=== PATIENT | female | born 1965 ===

== ENCOUNTER 2020-10-16 06:47 | Inpatient (IN) | payer MEDICAID ==
[2020-10-16] MEDS ORDERED: MELATONIN 5 MG TAB PO PRN (08:18)
[2020-10-16] MEDS: OMEGA-3 FATTY ACIDS/FISH OIL 1 GRAM CAP PO SCH (10:00)
[2020-10-16] MEDS: NICOTINE 21 MG/24 HR PATCH TD SCH (14:47)
[2020-10-16] MEDS ORDERED: oxyCODONE /ACETAMINOPHEN 5-325MG TAB PO STA (21:04)
[2020-10-16] MEDS: DIVALPROEX ER 500 MG TAB PO SCH (22:29)
[2020-10-16] MEDS: traZODone 50 MG TAB PO SCH (22:30)
[2020-10-17] MEDS: OMEGA-3 FATTY ACIDS/FISH OIL 1 GRAM CAP PO SCH ×3 (02:48→21:32)
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
[2020-10-17] MEDS: ESCITALOPRAM 10 MG TAB PO SCH (09:06)
[2020-10-17] MEDS: NICOTINE 21 MG/24 HR PATCH TD SCH (09:07)
[2020-10-17] MEDS: DIVALPROEX ER 500 MG TAB PO SCH ×4 (09:07→20:06)
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
[2020-10-17] MEDS ORDERED: ONDANSETRON 8 MG ODT TAB PO PRN (18:26)
[2020-10-17] MEDS: PANTOPRAZOLE 40 MG TAB PO SCH (20:05)
[2020-10-17] MEDS: oxyCODONE 5 MG TAB PO PRN (20:08)
[2020-10-17] MEDS: oxyCODONE /ACETAMINOPHEN 5-325MG TAB PO PRN (20:10)
[2020-10-17 20:14] LABS: Basophils # (Auto) 0.1 K/mm3 (0.0-0.1); Basophils % (Auto) 1.1 % (0.0-1.8); Eosinophils # (Auto) 0.2 K/mm3 (0.0-0.4); Eosinophils % (Auto) 2.4 % (0.0-4.3); Hematocrit 41.4 % (30.3-42.9); Hemoglobin 13.9 gm/dl (10.1-14.3); Lymphocytes # (Auto) 3.5 K/mm3 (1.2-5.4); Lymphocytes % (Auto) 37.7 % (13.4-35.0); Mean Corpuscular HGB Conc 34 % (30-34); Mean Corpuscular Volume 98 fl (79-97); Monocytes # (Auto) 0.6 K/mm3 (0.0-0.8); Monocytes % (Auto) 6.8 % (0.0-7.3); Platelet Count 279 K/mm3 (140-440); Red Blood Count 4.24 M/mm3 (3.65-5.03); Red Cell Distribution Width 15.3 % (13.2-15.2)
[2020-10-17 20:32] LABS: Alanine Aminotransferase 14 units/L (7-56); Albumin 4.2 g/dL (3.9-5); BUN/Creatinine Ratio 18; Blood Urea Nitrogen 21 mg/dL (7-17); Calcium 9.7 mg/dL (8.4-10.2); Chol/HDL Ratio 4.77 %; HDL Cholesterol 45 mg/dL (40-59); Hemolysis Index 3; LDL Cholesterol,Direct 135 mg/dL (50-130)
[2020-10-17] MEDS: METOCLOPRAMIDE 10 MG TAB PO SCH (21:32)
[2020-10-17] MEDS: traZODone 50 MG TAB PO SCH (21:32)
[2020-10-17] MEDS: CETIRIZINE 10 MG TAB PO SCH (21:35)
[2020-10-17] MEDS: MONTELUKAST 10 MG TAB PO SCH (21:35)
[2020-10-17] MEDS ORDERED: NON-FORMULARY EACH (Oxycodone Hcl/Acetaminophen [Oxycodone-Acetaminophen 10-325] 1 EACH Ta PO SCH (22:00)
[2020-10-17] MEDS ORDERED: NON-FORMULARY EACH (Fluticasone/Salmeterol [Advair Diskus 250-50 Mcg] 1 EACH Blst.W.Dev) IH SCH (22:00)
[2020-10-18] MEDS: ARFORMOTEROL 15 MCG/2 ML NEBU IH SCH ×2 (05:01→07:57)
[2020-10-18] MEDS: BUDESONIDE 0.5 MG/2 ML NEBU IH SCH ×2 (05:01→07:57)
--- NOTE | 2020-10-18 08:22 | Progress Note ---
Subjective Date of service: 10/18/20 Principal diagnosis: MDD Subjective Comment: Per nurse note: Last evening the patient presented as anxious. She paced the hallway until her medications were ordered the way she wanted. After receiving her meds she became much calmer and interacted well with her peers. She denies si/hi/ah/vh. She has a good appetite and is medication compliant. Overnight the patient rested quietly. She slept 8 hours. Will continue to monitor patient for safety. The patient was seen today, she is sitting in the dayroom. She is a/o x 3. She's pleasant. The patient is slightly tearful. She says she didn't sleep well. Mrs. Dickerson says she was admitted because she has a spot on her lungs, and has no social support. She says "I was very depressed, but I feel a little better about the situation." She also verbalizes feeling a "little suicide," at the time, but states "I do feel somewhat better now." She denies hallucinations of any kind. REVIEW OF SYSTEMS Constitutional: Negative for weight loss ENT: Negative for stridor Respiratory: Negative for cough or hemoptysis All other systems reviewed and are negative MENTAL STATUS EXAMINATION General Appearance and Behavior: Age appropriate, good hygiene, wearing appropriate clothes,, good eye contact Cooperation: Participating/engaged, but Guarded Psychomotor Behavior: Psychomotor normal Mood: depressed Affect and affective range: tearful Thought Process: goal directed Thought Content: hopelessness, helplessness Speech: Normal rate, volume and rhythm Intellectual Functioning: Average Suicidal Ideation: Passive SI Homicidal Ideation: Denies HI Hallucinations: Denies Delusions: None elicited Impulse Control: Impaired Insight and Judgment: Limited insight and judgment Memory: Normal Attention: Normal Orientation: Alert, oriented Assessment and Plan (1) MDD (major depressive disorder), recurrent episode Current Visit: Yes Status: Acute Treatment Plan Patient admitted for inpatient psychiatric evaluation, medication adjustment and close monitoring The patient's behavior, mood, sleep and appetite will be closely monitored. Patient enrolled in individual and group therapeutic sessions and encouraged to attend. Patient provided with a safe and structured environment. Patient's physical health needs will be addressed by the Hospitalist. Hospitalist Consulted Labs including CBC, CMP, Lipid profile and Hemoglobin A1C levels ordered for baseline reference Social Assessment will be completed and the Surveying Teacher will work with patient and family to ensure a suitable and safe disposition Medication adjustment will be made as clinically indicated Increase Trazodone 75mg po qhs Usual Wellness Jainism/Preservation: - Start Trazodone 50 mg po QHS & 50 mg po QHS PRN between 10 PM & 2 AM for insomnia - Start Melatonin 5 mg po QHS to promote circadian rhythm - Start [place]-3 for brain health, reduce impulsivity, and as adjunctive treatment for mood disorder, continue upon discharge given overall benefits. - Start B1 prophylaxis with 200 mg po for 5 days The patient agreed on the treatment plan, understood the risk, benefit, alternative treatment, potential consequence of no treatment, and gave informed consent. Estimated days: 2 Post hospital care: primary care provider, psychiatric provider Medications and Allergies Allergies Allergy/AdvReac Type Severity Reaction Status Date / Time cyclobenzaprine Allergy Unknown Verified 10/16/20 10:50 [From Flexeril] tizanidine [From Zanaflex] Allergy Unknown Verified 10/16/20 10:50 Home Medications Medication Instructions Recorded Confirmed Last Taken Type AtorvaSTATin [Lipitor] 10 mg PO QHS 10/16/20 10/16/20 Unknown History Divalproex ER [DepaKOTE ER] 500 mg PO TID 10/16/20 10/16/20 Unknown History Escitalopram [Lexapro] 30 mg PO DAILY 10/16/20 10/16/20 Unknown History Fluticasone/Salmeterol [Advair 1 puff IH BID 10/16/20 10/16/20 Unknown History Diskus 250-50 mcg] Loratadine [Allergy Relief] 10 mg PO QDAY 10/16/20 10/16/20 Unknown History Meloxicam [Mobic] 15 mg PO DAILY 10/16/20 10/16/20 Unknown History Metoclopramide [Reglan] 10 mg PO ACHS 10/16/20 10/16/20 Unknown History Montelukast [Singulair] 10 mg PO QPM 10/16/20 10/16/20 Unknown History Ondansetron [Zofran ODT TAB] 8 mg PO PRN PRN 10/16/20 10/16/20 Unknown History Oxycodone HCl/Acetaminophen 10 - 325 mg PO QID 10/16/20 10/16/20 Unknown History [Oxycodone-Acetaminophen 10-325] Pantoprazole [Protonix] 40 mg PO QDAY 10/16/20 10/16/20 Unknown History cephALEXin [Keflex] 500 mg PO Q12HR 10/16/20 10/16/20 10/16/20 09:00 History clonazePAM [KlonoPIN] 1 mg PO BID 10/16/20 10/16/20 Unknown History diphenhydrAMINE [Benadryl CAP] 50 mg PO DAILY 10/16/20 10/16/20 Unknown History Active Meds: Active Medications Arformoterol Tartrate (Arformoterol 15 Mcg/2 Ml Nebu) 15 mcg IH Q12HRT [facility] Last Admin: 10/18/20 07:57 Dose: 15 mcg Documented by: Atorvastatin Calcium (Atorvastatin 10 Mg Tab) 10 mg PO QHS [facility] Last Admin: 10/17/20 21:32 Dose: 10 mg Documented by: Budesonide (Budesonide 0.5 Mg/2 Ml Nebu) 0.5 mg IH Q12HRT [facility] Last Admin: 10/18/20 07:57 Dose: 0.5 mg Documented by: Cephalexin (Cephalexin 500 Mg Cap) 500 mg PO Q12HR [facility]; Protocol Stop: 10/22/20 23:59 Cetirizine HCl (Cetirizine 10 Mg Tab) 10 mg PO DAILY [facility] Last Admin: 10/17/20 21:35 Dose: 10 mg Documented by: Clonazepam (Clonazepam 2 Mg Tab) 1 mg PO BID [facility] Last Admin: 10/17/20 21:33 Dose: 1 mg Documented by: Divalproex Sodium (Divalproex Er 500 Mg Tab) 500 mg PO TID [facility] Last Admin: 10/17/20 20:06 Dose: 500 mg Documented by: Escitalopram Oxalate (Escitalopram 10 Mg Tab) 30 mg PO DAILY [facility] Last Admin: 10/17/20 09:06 Dose: 30 mg Documented by: Fish Oil ([place]-3 Fatty Acids/Fish Oil 1 Gram Cap) 2,000 mg PO BID [facility] Last Admin: 10/17/20 21:32 Dose: 2,000 mg Documented by: Melatonin (Melatonin 5 Mg Tab) 5 mg PO QHS PRN PRN Reason: Sleep Metoclopramide HCl (Metoclopramide 10 Mg Tab) 10 mg PO ACHS [facility] Last Admin: 10/17/20 21:32 Dose: 10 mg Documented by: Montelukast Sodium (Montelukast 10 Mg Tab) 10 mg PO QPM [facility] Last Admin: 10/17/20 21:35 Dose: 10 mg Documented by: Nicotine (Nicotine 21 Mg/24 Hr Patch) 21 mg TD QDAY [facility] Last Admin: 10/17/20 09:07 Dose: 21 mg Documented by: Ondansetron HCl (Ondansetron 8 Mg Odt Tab) 8 mg PO Q6H PRN PRN Reason: Nausea Oxycodone HCl (Oxycodone 5 Mg Tab) 5 mg PO QID PRN PRN Reason: Pain, Moderate (4-6) Last Admin: 10/17/20 20:08 Dose: 5 mg Documented by: Oxycodone/Acetaminophen (Oxycodone /Acetaminophen 5-325mg Tab) 1 tab PO QID PRN PRN Reason: Pain, Moderate (4-6) Last Admin: 10/17/20 20:10 Dose: 1 tab Documented by: Pantoprazole Sodium (Pantoprazole 40 Mg Tab) 40 mg PO QDAY [facility] Last Admin: 10/17/20 20:05 Dose: 40 mg Documented by: Trazodone HCl (Trazodone 50 Mg Tab) 50 mg PO QHS [facility] Last Admin: 10/17/20 21:32 Dose: 50 mg Documented by: Results - Results Labs/Vitals: Laboratory Last Values WBC 9.3 K/mm3 (4.5-11.0) 10/17/20 19:36 RBC 4.24 M/mm3 (3.65-5.03) 10/17/20 19:36 Hgb 13.9 gm/dl (10.1-14.3) 10/17/20 19:36 Hct 41.4 % (30.3-42.9) 10/17/20 19:36 MCV 98 fl (79-97) H 10/17/20 19:36 MCH 33 pg (28-32) H 10/17/20 19:36 MCHC 34 % (30-34) 10/17/20 19:36 RDW 15.3 % (13.2-15.2) H 10/17/20 19:36 Plt Count 279 K/mm3 (140-440) 10/17/20 19:36 Lymph % (Auto) 37.7 % (13.4-35.0) H 10/17/20 19:36 [place] % (Auto) 6.8 % (0.0-7.3) 10/17/20 19:36 Eos % (Auto) 2.4 % (0.0-4.3) 10/17/20 19:36 Baso % (Auto) 1.1 % (0.0-1.8) 10/17/20 19:36 Lymph # (Auto) 3.5 K/mm3 (1.2-5.4) 10/17/20 19:36 [place] # (Auto) 0.6 K/mm3 (0.0-0.8) 10/17/20 19:36 Eos # (Auto) 0.2 K/mm3 (0.0-0.4) 10/17/20 19:36 Baso # (Auto) 0.1 K/mm3 (0.0-0.1) 10/17/20 19:36 Seg Neutrophils % 52.0 % (40.0-70.0) 10/17/20 19:36 Seg Neutrophils # 4.9 K/mm3 (1.8-7.7) 10/17/20 19:36 Sodium 139 mmol/L (137-145) 10/17/20 19:36 Potassium 4.3 mmol/L (3.6-5.0) 10/17/20 19:36 Chloride 101.1 mmol/L (98-107) 10/17/20 19:36 Carbon Dioxide 27 mmol/L (22-30) 10/17/20 19:36 Anion Gap 15 mmol/L 10/17/20 19:36 BUN 21 mg/dL (7-17) H 10/17/20 19:36 Creatinine 1.2 mg/dL (0.6-1.2) 10/17/20 19:36 Estimated GFR 46 ml/min 10/17/20 19:36 BUN/Creatinine Ratio 18 % 10/17/20 19:36 Glucose 93 mg/dL (65-100) 10/17/20 19:36 Hemoglobin A1c 5.2 % (4-6) 10/17/20 19:36 Calcium 9.7 mg/dL (8.4-10.2) 10/17/20 19:36 Magnesium 2.10 mg/dL (1.7-2.3) 10/17/20 19:36 Total Bilirubin < 0.20 mg/dL (0.1-1.2) 10/17/20 19:36 AST 18 units/L (5-40) 10/17/20 19:36 ALT 14 units/L (7-56) 10/17/20 19:36 Alkaline Phosphatase 97 units/L (35-129) 10/17/20 19:36 Total Protein 7.2 g/dL (6.3-8.2) 10/17/20 19:36 Albumin 4.2 g/dL (3.9-5) 10/17/20 19:36 Albumin/Globulin Ratio 1.4 % 10/17/20 19:36 Triglycerides 256 mg/dL (2-149) H 10/17/20 19:36 Cholesterol 215 mg/dL (50-199) H 10/17/20 19:36 LDL Cholesterol Direct 135 mg/dL (50-130) H 10/17/20 19:36 HDL Cholesterol 45 mg/dL (40-59) 10/17/20 19:36 Cholesterol/HDL Ratio 4.77 % 10/17/20 19:36 Vitamin B12 513.1 pg/mL (211-911) 10/17/20 19:36 TSH 2.930 mlU/mL (0.270-4.200) 10/17/20 19:36 Last Vital Signs Temp 98.3 F 10/17/20 22:00 Pulse 82 10/18/20 07:59 Resp 19 10/18/20 07:59 BP 114/80 10/17/20 22:00 Pulse Ox 96 10/17/20 22:00
[2020-10-18] MEDS: NICOTINE 21 MG/24 HR PATCH TD SCH (09:07)
[2020-10-18] MEDS: OMEGA-3 FATTY ACIDS/FISH OIL 1 GRAM CAP PO SCH ×2 (09:07→21:20)
[2020-10-18] MEDS: DIVALPROEX ER 500 MG TAB PO SCH ×3 (09:07→20:59)
[2020-10-18] MEDS: ESCITALOPRAM 10 MG TAB PO SCH (09:08)
[2020-10-18] MEDS: cephALEXin 500 MG CAP PO SCH ×2 (09:08→21:21)
[2020-10-18] MEDS: METOCLOPRAMIDE 10 MG TAB PO SCH ×4 (09:08→21:21)
[2020-10-18] MEDS: CETIRIZINE 10 MG TAB PO SCH (09:08)
[2020-10-18] MEDS: PANTOPRAZOLE 40 MG TAB PO SCH (09:08)
[2020-10-18] MEDS ORDERED: NON-FORMULARY EACH (Loratadine [Allergy Relief] 10 MG Tablet) PO SCH (10:00)
[2020-10-18] MEDS: oxyCODONE /ACETAMINOPHEN 5-325MG TAB PO PRN (10:13)
[2020-10-18] MEDS: oxyCODONE 5 MG TAB PO PRN (10:14)
[2020-10-18] MEDS: ASPIRIN EC 81 MG TAB PO SCH (13:51)
[2020-10-18] MEDS: MONTELUKAST 10 MG TAB PO SCH (17:47)
[2020-10-18] MEDS: traZODone 50 MG TAB PO SCH (21:20)
[2020-10-19] MEDS: BUDESONIDE 0.5 MG/2 ML NEBU IH SCH ×2 (03:35→19:24)
[2020-10-19] MEDS: ARFORMOTEROL 15 MCG/2 ML NEBU IH SCH ×2 (03:35→19:23)
[2020-10-19] MEDS: METOCLOPRAMIDE 10 MG TAB PO SCH ×4 (08:00→21:04)
--- NOTE | 2020-10-19 08:09 | Progress Note ---
Subjective Date of service: 10/19/20 Principal diagnosis: MDD Subjective Comment: Per nurse note: Pt received relaxing in bed. A&OX3. Denies pain, SI or HI. No acute distress observed and none reported. Will continue to monitor. The patient was seen today, she is lying down in bed asleep. She easily arouses. She verbalizes feeling better about her situation. She says she slept well with the adjustment of the Trazodone. She denies SI/HI or hallucinations of any kind. REVIEW OF SYSTEMS Constitutional: Negative for weight loss ENT: Negative for stridor Respiratory: Negative for cough or hemoptysis All other systems reviewed and are negative MENTAL STATUS EXAMINATION General Appearance and Behavior: Age appropriate, good hygiene, wearing appropriate clothes, good eye contact Cooperation: Participating/engaged, but Guarded Psychomotor Behavior: Psychomotor normal Mood: "better" Affect and affective range: Euthymic Thought Process: goal directed Thought Content: optimism Speech: Normal rate, volume and rhythm Intellectual Functioning: Average Suicidal Ideation: Denies Homicidal Ideation: Denies Hallucinations: Denies Delusions: None elicited Impulse Control: unimpaired Insight and Judgment: Limited insight and judgment Memory: Normal Attention: Normal Orientation: Alert, oriented Assessment and Plan (1) MDD (major depressive disorder), recurrent episode Current Visit: Yes Status: Acute Treatment Plan Patient admitted for inpatient psychiatric evaluation, medication adjustment and close monitoring The patient's behavior, mood, sleep and appetite will be closely monitored. Patient enrolled in individual and group therapeutic sessions and encouraged to attend. Patient provided with a safe and structured environment. Patient's physical health needs will be addressed by the Hospitalist. Hospitalist Consulted Labs including CBC, CMP, Lipid profile and Hemoglobin A1C levels ordered for baseline reference Social Assessment will be completed and the Sfdc Architect will work with patient and family to ensure a suitable and safe disposition Medication adjustment will be made as clinically indicated Increase Trazodone 75mg po qhs yesterday No changes today Usual Wellness Jewish/Preservation: - Start Trazodone 50 mg po QHS & 50 mg po QHS PRN between 10 PM & 2 AM for insomnia - Start Melatonin 5 mg po QHS to promote circadian rhythm - Start [place]-3 for brain health, reduce impulsivity, and as adjunctive treatment for mood disorder, continue upon discharge given overall benefits. - Start B1 prophylaxis with 200 mg po for 5 days The patient agreed on the treatment plan, understood the risk, benefit, alternative treatment, potential consequence of no treatment, and gave informed consent. Estimated days: 2 Post hospital care: primary care provider, psychiatric provider Medications and Allergies Allergies Allergy/AdvReac Type Severity Reaction Status Date / Time cyclobenzaprine Allergy Unknown Verified 10/16/20 10:50 [From Flexeril] tizanidine [From Zanaflex] Allergy Unknown Verified 10/16/20 10:50 Home Medications Medication Instructions Recorded Confirmed Last Taken Type AtorvaSTATin [Lipitor] 10 mg PO QHS 10/16/20 10/16/20 Unknown History Divalproex ER [DepaKOTE ER] 500 mg PO TID 10/16/20 10/16/20 Unknown History Escitalopram [Lexapro] 30 mg PO DAILY 10/16/20 10/16/20 Unknown History Fluticasone/Salmeterol [Advair 1 puff IH BID 10/16/20 10/16/20 Unknown History Diskus 250-50 mcg] Loratadine [Allergy Relief] 10 mg PO QDAY 10/16/20 10/16/20 Unknown History Meloxicam [Mobic] 15 mg PO DAILY 10/16/20 10/16/20 Unknown History Metoclopramide [Reglan] 10 mg PO ACHS 10/16/20 10/16/20 Unknown History Montelukast [Singulair] 10 mg PO QPM 10/16/20 10/16/20 Unknown History Ondansetron [Zofran ODT TAB] 8 mg PO PRN PRN 10/16/20 10/16/20 Unknown History Oxycodone HCl/Acetaminophen 10 - 325 mg PO QID 10/16/20 10/16/20 Unknown History [Oxycodone-Acetaminophen 10-325] Pantoprazole [Protonix] 40 mg PO QDAY 10/16/20 10/16/20 Unknown History cephALEXin [Keflex] 500 mg PO Q12HR 10/16/20 10/16/20 10/16/20 09:00 History clonazePAM [KlonoPIN] 1 mg PO BID 10/16/20 10/16/20 Unknown History diphenhydrAMINE [Benadryl CAP] 50 mg PO DAILY 10/16/20 10/16/20 Unknown History Active Meds: Active Medications Arformoterol Tartrate (Arformoterol 15 Mcg/2 Ml Nebu) 15 mcg IH Q12HRT [facility] Last Admin: 10/19/20 03:35 Dose: Not Given Documented by: Aspirin (Aspirin Ec 81 Mg Tab) 81 mg PO QDAY [facility] Last Admin: 10/18/20 13:51 Dose: 81 mg Documented by: Atorvastatin Calcium (Atorvastatin 10 Mg Tab) 10 mg PO QHS [facility] Last Admin: 10/18/20 21:21 Dose: 10 mg Documented by: Budesonide (Budesonide 0.5 Mg/2 Ml Nebu) 0.5 mg IH Q12HRT [facility] Last Admin: 10/19/20 03:35 Dose: Not Given Documented by: Cephalexin (Cephalexin 500 Mg Cap) 500 mg PO Q12HR [facility]; Protocol Stop: 10/22/20 23:59 Last Admin: 10/18/20 21:21 Dose: 500 mg Documented by: Cetirizine HCl (Cetirizine 10 Mg Tab) 10 mg PO DAILY [facility] Last Admin: 10/18/20 09:08 Dose: 10 mg Documented by: Clonazepam (Clonazepam 2 Mg Tab) 1 mg PO BID [facility] Last Admin: 10/18/20 21:19 Dose: 1 mg Documented by: Divalproex Sodium (Divalproex Er 500 Mg Tab) 500 mg PO TID [facility] Last Admin: 10/18/20 20:59 Dose: 500 mg Documented by: Escitalopram Oxalate (Escitalopram 10 Mg Tab) 30 mg PO DAILY [facility] Last Admin: 10/18/20 09:08 Dose: 30 mg Documented by: Fish Oil ([place]-3 Fatty Acids/Fish Oil 1 Gram Cap) 2,000 mg PO BID [facility] Last Admin: 10/18/20 21:20 Dose: 2,000 mg Documented by: Melatonin (Melatonin 5 Mg Tab) 5 mg PO QHS PRN PRN Reason: Sleep Metoclopramide HCl (Metoclopramide 10 Mg Tab) 10 mg PO ACHS [facility] Last Admin: 10/18/20 21:21 Dose: 10 mg Documented by: Montelukast Sodium (Montelukast 10 Mg Tab) 10 mg PO QPM [facility] Last Admin: 10/18/20 17:47 Dose: 10 mg Documented by: Nicotine (Nicotine 21 Mg/24 Hr Patch) 21 mg TD QDAY [facility] Last Admin: 10/18/20 09:07 Dose: 21 mg Documented by: Ondansetron HCl (Ondansetron 8 Mg Odt Tab) 8 mg PO Q6H PRN PRN Reason: Nausea Oxycodone HCl (Oxycodone 5 Mg Tab) 5 mg PO QID PRN PRN Reason: Pain, Moderate (4-6) Last Admin: 10/18/20 10:14 Dose: 5 mg Documented by: Oxycodone/Acetaminophen (Oxycodone /Acetaminophen 5-325mg Tab) 1 tab PO QID PRN PRN Reason: Pain, Moderate (4-6) Last Admin: 10/18/20 10:13 Dose: 1 tab Documented by: Pantoprazole Sodium (Pantoprazole 40 Mg Tab) 40 mg PO QDAY [facility] Last Admin: 10/18/20 09:08 Dose: 40 mg Documented by: Trazodone HCl (Trazodone 50 Mg Tab) 75 mg PO QHS [facility] Last Admin: 10/18/20 21:20 Dose: 75 mg Documented by: Results - Results Labs/Vitals: Laboratory Last Values WBC 9.3 K/mm3 (4.5-11.0) 10/17/20 19:36 RBC 4.24 M/mm3 (3.65-5.03) 10/17/20 19:36 Hgb 13.9 gm/dl (10.1-14.3) 10/17/20 19:36 Hct 41.4 % (30.3-42.9) 10/17/20 19:36 MCV 98 fl (79-97) H 10/17/20 19:36 MCH 33 pg (28-32) H 10/17/20 19:36 MCHC 34 % (30-34) 10/17/20 19:36 RDW 15.3 % (13.2-15.2) H 10/17/20 19:36 Plt Count 279 K/mm3 (140-440) 10/17/20 19:36 Lymph % (Auto) 37.7 % (13.4-35.0) H 10/17/20 19:36 [place] % (Auto) 6.8 % (0.0-7.3) 10/17/20 19:36 Eos % (Auto) 2.4 % (0.0-4.3) 10/17/20 19:36 Baso % (Auto) 1.1 % (0.0-1.8) 10/17/20 19:36 Lymph # (Auto) 3.5 K/mm3 (1.2-5.4) 10/17/20 19:36 [place] # (Auto) 0.6 K/mm3 (0.0-0.8) 10/17/20 19:36 Eos # (Auto) 0.2 K/mm3 (0.0-0.4) 10/17/20 19:36 Baso # (Auto) 0.1 K/mm3 (0.0-0.1) 10/17/20 19:36 Seg Neutrophils % 52.0 % (40.0-70.0) 10/17/20 19:36 Seg Neutrophils # 4.9 K/mm3 (1.8-7.7) 10/17/20 19:36 Sodium 139 mmol/L (137-145) 10/17/20 19:36 Potassium 4.3 mmol/L (3.6-5.0) 10/17/20 19:36 Chloride 101.1 mmol/L (98-107) 10/17/20 19:36 Carbon Dioxide 27 mmol/L (22-30) 10/17/20 19:36 Anion Gap 15 mmol/L 10/17/20 19:36 BUN 21 mg/dL (7-17) H 10/17/20 19:36 Creatinine 1.2 mg/dL (0.6-1.2) 10/17/20 19:36 Estimated GFR 46 ml/min 10/17/20 19:36 BUN/Creatinine Ratio 18 % 10/17/20 19:36 Glucose 93 mg/dL (65-100) 10/17/20 19:36 Hemoglobin A1c 5.2 % (4-6) 10/17/20 19:36 Calcium 9.7 mg/dL (8.4-10.2) 10/17/20 19:36 Magnesium 2.10 mg/dL (1.7-2.3) 10/17/20 19:36 Total Bilirubin < 0.20 mg/dL (0.1-1.2) 10/17/20 19:36 AST 18 units/L (5-40) 10/17/20 19:36 ALT 14 units/L (7-56) 10/17/20 19:36 Alkaline Phosphatase 97 units/L (35-129) 10/17/20 19:36 Total Protein 7.2 g/dL (6.3-8.2) 10/17/20 19:36 Albumin 4.2 g/dL (3.9-5) 10/17/20 19:36 Albumin/Globulin Ratio 1.4 % 10/17/20 19:36 Triglycerides 256 mg/dL (2-149) H 10/17/20 19:36 Cholesterol 215 mg/dL (50-199) H 10/17/20 19:36 LDL Cholesterol Direct 135 mg/dL (50-130) H 10/17/20 19:36 HDL Cholesterol 45 mg/dL (40-59) 10/17/20 19:36 Cholesterol/HDL Ratio 4.77 % 10/17/20 19:36 Vitamin B12 513.1 pg/mL (211-911) 10/17/20 19:36 TSH 2.930 mlU/mL (0.270-4.200) 10/17/20 19:36 Last Vital Signs Temp 98.4 F 10/18/20 19:55 Pulse 72 10/18/20 19:55 Resp 16 10/18/20 19:55 BP 103/63 10/18/20 19:55 Pulse Ox 95 10/18/20 19:55
[2020-10-19] MEDS: DIVALPROEX ER 500 MG TAB PO SCH ×3 (10:01→20:43)
[2020-10-19] MEDS: cephALEXin 500 MG CAP PO SCH ×2 (10:01→21:04)
[2020-10-19] MEDS: PANTOPRAZOLE 40 MG TAB PO SCH (10:01)
[2020-10-19] MEDS: ESCITALOPRAM 10 MG TAB PO SCH (10:01)
[2020-10-19] MEDS: ASPIRIN EC 81 MG TAB PO SCH (10:01)
[2020-10-19] MEDS: CETIRIZINE 10 MG TAB PO SCH (10:02)
[2020-10-19] MEDS: OMEGA-3 FATTY ACIDS/FISH OIL 1 GRAM CAP PO SCH ×2 (10:04→21:04)
[2020-10-19] MEDS: NICOTINE 21 MG/24 HR PATCH TD SCH (10:04)
[2020-10-19] MEDS: oxyCODONE /ACETAMINOPHEN 5-325MG TAB PO PRN (10:15)
[2020-10-19] MEDS: MONTELUKAST 10 MG TAB PO SCH (17:06)
[2020-10-19] MEDS: traZODone 50 MG TAB PO SCH (21:04)
--- NOTE | 2020-10-20 08:32 | Discharge Summary ---
Providers - Providers Date of Admission: 10/16/20 13:00 Date of discharge: 10/20/20 Attending physician: YURIY JUAN MD 10/16/20 08:15 Consult to Physician [CONS] Routine Comment: Consulting Provider: MELA DEVI Physician Instructions: Reason For Exam: Med Managt Primary care physician: CUSTOMER SUPPORT EXECUTIVE Hospitalization Reason for admission: depression Admitting Diagnosis: F33.9 - MAJOR DEPRESSIVE DISORDER, RECURRENT, UNSPECIFIED Hospital course: The patient was provided inpatient psychiatric treatment with safe and supportive care, medication adjustment, adverse effect monitoring, medical evaluations, medical treatments, assessment and psycho-education. The patient's mood, cognition, behavior, moral support are improved and stabilized. St the time of discharge, the patient had no endangering behavior and no debilitating adverse effects. The patient agreed on potential consequences of no treatment and gave informed consent. Disposition: DC- TO HOME OR SELFCARE Time spent for discharge: 38 Allergies/Adverse Reactions: Allergies cyclobenzaprine [From Flexeril] Allergy (Verified 10/16/20 10:50) Unknown tizanidine [From Zanaflex] Allergy (Verified 10/16/20 10:50) Unknown Vital Signs: Last Vital Signs Temp 97.7 F 10/19/20 21:00 Pulse 70 10/19/20 21:00 Resp 15 10/19/20 21:00 BP 92/57 10/19/20 21:00 Pulse Ox 96 10/19/20 21:00 Last Lab: Laboratory Last Values WBC 9.3 K/mm3 (4.5-11.0) 10/17/20 19:36 RBC 4.24 M/mm3 (3.65-5.03) 10/17/20 19:36 Hgb 13.9 gm/dl (10.1-14.3) 10/17/20 19:36 Hct 41.4 % (30.3-42.9) 10/17/20 19:36 MCV 98 fl (79-97) H 10/17/20 19:36 MCH 33 pg (28-32) H 10/17/20 19:36 MCHC 34 % (30-34) 10/17/20 19:36 RDW 15.3 % (13.2-15.2) H 10/17/20 19:36 Plt Count 279 K/mm3 (140-440) 10/17/20 19:36 Lymph % (Auto) 37.7 % (13.4-35.0) H 10/17/20 19:36 [place] % (Auto) 6.8 % (0.0-7.3) 10/17/20 19:36 Eos % (Auto) 2.4 % (0.0-4.3) 10/17/20 19:36 Baso % (Auto) 1.1 % (0.0-1.8) 10/17/20 19:36 Lymph # (Auto) 3.5 K/mm3 (1.2-5.4) 10/17/20 19:36 [place] # (Auto) 0.6 K/mm3 (0.0-0.8) 10/17/20 19:36 Eos # (Auto) 0.2 K/mm3 (0.0-0.4) 10/17/20 19:36 Baso # (Auto) 0.1 K/mm3 (0.0-0.1) 10/17/20 19:36 Seg Neutrophils % 52.0 % (40.0-70.0) 10/17/20 19:36 Seg Neutrophils # 4.9 K/mm3 (1.8-7.7) 10/17/20 19:36 Sodium 139 mmol/L (137-145) 10/17/20 19:36 Potassium 4.3 mmol/L (3.6-5.0) 10/17/20 19:36 Chloride 101.1 mmol/L (98-107) 10/17/20 19:36 Carbon Dioxide 27 mmol/L (22-30) 10/17/20 19:36 Anion Gap 15 mmol/L 10/17/20 19:36 BUN 21 mg/dL (7-17) H 10/17/20 19:36 Creatinine 1.2 mg/dL (0.6-1.2) 10/17/20 19:36 Estimated GFR 46 ml/min 10/17/20 19:36 BUN/Creatinine Ratio 18 % 10/17/20 19:36 Glucose 93 mg/dL (65-100) 10/17/20 19:36 Hemoglobin A1c 5.2 % (4-6) 10/17/20 19:36 Calcium 9.7 mg/dL (8.4-10.2) 10/17/20 19:36 Magnesium 2.10 mg/dL (1.7-2.3) 10/17/20 19:36 Total Bilirubin < 0.20 mg/dL (0.1-1.2) 10/17/20 19:36 AST 18 units/L (5-40) 10/17/20 19:36 ALT 14 units/L (7-56) 10/17/20 19:36 Alkaline Phosphatase 97 units/L (35-129) 10/17/20 19:36 Total Protein 7.2 g/dL (6.3-8.2) 10/17/20 19:36 Albumin 4.2 g/dL (3.9-5) 10/17/20 19:36 Albumin/Globulin Ratio 1.4 % 10/17/20 19:36 Triglycerides 256 mg/dL (2-149) H 10/17/20 19:36 Cholesterol 215 mg/dL (50-199) H 10/17/20 19:36 LDL Cholesterol Direct 135 mg/dL (50-130) H 10/17/20 19:36 HDL Cholesterol 45 mg/dL (40-59) 10/17/20 19:36 Cholesterol/HDL Ratio 4.77 % 10/17/20 19:36 Vitamin B12 513.1 pg/mL (211-911) 10/17/20 19:36 TSH 2.930 mlU/mL (0.270-4.200) 10/17/20 19:36 Core Measure Documentation - Palliative Care Palliative Care/ Comfort Measures: Not Applicable - Core Measures Any of the following diagnoses?: none Exam - Constitutional Vitals: Temp Pulse Resp BP Pulse Ox 97.7 F 70 15 92/57 96 10/19/20 21:00 10/19/20 21:00 10/19/20 21:00 10/19/20 21:00 10/19/20 21:00 General appearance: Present: no acute distress - EENT Eyes: Present: PERRL, EOM intact ENT: hearing intact, clear oral mucosa - Neck Neck: Present: supple, normal ROM - Respiratory Respiratory effort: normal Plan Activity: advance as tolerated Weight Bearing Status: Weight Bear as Tolerated Care Plan Goals: Maintain good and stable mental health Plan of Treatment: The patient should be compliant with medications, not to use drugs, and not to drink alcohol. The patient understands that if suicidal ideas, homicidal ideas or any endangering feeling arise, the patient should seek assistance including, but not limited to crisis hotline, and emergency room. Trazodone discontinued. The patient says it gives her vivid nightmares and does not want to continue taking it. Assessment: Major Depressive Disorder Follow up with: PRIMARY CARE, [Primary Care Provider] - 7 Days Prescriptions: traZODone [Desyrel] 75 mg PO QHS #45 tablet Melatonin [Melatonin 5MG TAB] 5 mg PO QHS PRN #30 tablet PRN Reason: Sleep Divalproex ER [Depakote ER] 500 mg PO TID #90 [place]-3 Fatty Acids/Fish Oil [Fish Oil] 2,000 mg PO BID #120 capsule Nicotine [Habitrol] 21 mg TD QDAY #30 patch
[2020-10-20 10:24] VITALS: BP 109/71
[2020-10-20] MEDS: OMEGA-3 FATTY ACIDS/FISH OIL 1 GRAM CAP PO SCH (10:24)
[2020-10-20] MEDS: ASPIRIN EC 81 MG TAB PO SCH (10:25)
[2020-10-20] MEDS: ESCITALOPRAM 10 MG TAB PO SCH (10:25)
[2020-10-20] MEDS: CETIRIZINE 10 MG TAB PO SCH (10:25)
[2020-10-20] MEDS: DIVALPROEX ER 500 MG TAB PO SCH ×2 (10:25→13:22)
[2020-10-20] MEDS: METOCLOPRAMIDE 10 MG TAB PO SCH ×2 (10:26→13:22)
[2020-10-20] MEDS: PANTOPRAZOLE 40 MG TAB PO SCH (10:27)
[2020-10-20] MEDS: NICOTINE 21 MG/24 HR PATCH TD SCH (10:28)
[2020-10-20] MEDS: BUDESONIDE 0.5 MG/2 ML NEBU IH SCH ×2 (11:05→11:06)
[2020-10-20] MEDS: ARFORMOTEROL 15 MCG/2 ML NEBU IH SCH (11:06)
[2020-10-20] MEDS: cephALEXin 500 MG CAP PO SCH (11:30)
[2020-10-20] MEDS: oxyCODONE /ACETAMINOPHEN 5-325MG TAB PO PRN (11:30)
== END 2020-10-20 15:40 | disposition home or self-care (01) | DRG 885 ==
LOC: UNDOADMIN 06:47 → 3A 06:47 → 5A 13:00
PROVIDERS: ADMIT Psychiatry & Neurology Psychiatry; ATTEND Psychiatry & Neurology Psychiatry
DX: F33.9 Major depressive disorder, recurrent, unspecified (principal); F41.9 Anxiety disorder, unspecified; N39.0 Urinary tract infection, site not specified; F43.10 Post-traumatic stress disorder, unspecified; J44.9 Chronic obstructive pulmonary disease, unspecified; R45.851 Suicidal ideations; Z86.73 Personal history of transient ischemic attack (TIA), and cerebral infarction without residual deficits; Z88.8 Allergy status to other drugs, medicaments and biological substances
CPT/HCPCS: 36415; 80053; 80061; 82607; 83036; 83735; 84443; 85025; 94640; G0378; A9270-GY

== ENCOUNTER 2021-07-28 16:07 | Inpatient (IN) | payer MEDICAID ==
[2021-07-29] MEDS ORDERED: ONDANSETRON 8 MG ODT TAB PO PRN (11:00)
[2021-07-29] MEDS ORDERED: MELATONIN 5 MG TAB PO PRN (11:00)
--- NOTE | 2021-07-29 11:06 | History and Physical Report ---
GP History & Physical - History of Present Illness Date of admission: 07/29/21 Date of Examination: 07/29/21 Reason for Admission: Danger to self, Failure of Outpatient Treatment, Severe anxiety/depression History of Present Illness: The patient was seen today. She is a 56y/o female patient who states she "just wanted to due to being in so much pain." The patient says "I've been living in pain for so long and nobody will help me." The patient says she is no longer on any pain meds. She says she is seeing a pain doctor now but he didn't give her anything to help her. The patient verbalizes feeling depressed. She says she still feels "a little suicidal but doesn't have a plan to hurt herself." She denies hallucinations of any kind. The patient says she has a good support system with her younger sister. She says she is and lives a lone in an apartment. She denies any illicit drug use, or alcohol. She says she smokes a pack of cigarets daily PAST PSYCHIATRIC HISTORY: Diagnoses: Depression Suicide attempts or Self-harm behavior: Yes Prior psychiatric hospitalizations: Yes Substance Abuse history: Denies Previous psychiatric medications tried: Depakote, lexapro Outpatient treatment: yes PAST MEDICAL HISTORY: unknown Family Psychiatric History: None reported or documented SOCIAL HISTORY Marital Status: Living Arrangements: apartment Employment Status: Disabled Access to guns/weapons: Denies Education: History of Abuse:denies Legal History: Denies REVIEW OF SYSTEMS Constitutional: Negative for weight loss ENT: Negative for stridor Respiratory: Negative for cough or hemoptysis All other systems reviewed and are negative MENTAL STATUS EXAMINATION General Appearance and Behavior: Age appropriate, good hygiene, wearing appropriate clothes. calm, cooperative Cooperation: Cooperative Psychomotor Behavior: Psychomotor normal Mood: Depressed Affect and affective range: Congruent with stated mood Thought Process: Goal directed Thought Content: Reality oriented Speech: Normal Suicidal Ideation: Yes Homicidal Ideation: Denies Hallucinations: Denies Delusions: Denies Impulse Control: Limited Insight and Judgment: Limited insight and fair judgment Memory: Limited Attention: distracted Orientation: a/o x 3 Assessment (1) Major Depressive Disorder Current Visit: Yes Status: Acute Treatment Plan Patient admitted for inpatient psychiatric evaluation, medication adjustment and close monitoring The patient's behavior, mood, sleep and appetite will be closely monitored. Patient enrolled in individual and group therapeutic sessions and encouraged to attend. Patient provided with a safe and structured environment. Patient's physical health needs will be addressed by the Hospitalist. Hospitalist Consulted Labs including CBC, CMP, Lipid profile and Hemoglobin A1C levels ordered for baseline reference Social Assessment will be completed and the Porcelain Enameler will work with patient and family to ensure a suitable and safe disposition Medication adjustment will be made as clinically indicated Restarted home meds Start Ultram 50mg po q4h prn Usual Wellness Adventism/Preservation: - Start Trazodone 50 mg po QHS & 50 mg po QHS PRN between 10 PM & 2 AM for insomnia - Start Melatonin 5 mg po QHS to promote circadian rhythm The patient agreed on the treatment plan, understood the risk, benefit, alternative treatment, potential consequence of no treatment, and gave informed consent. Estimated days: 7 Post hospital care: primary care provider, psychiatric provider Case staffed with Dr. Wade Legal Status: Voluntary Reaction to Hospitalization: Accepting Medications and Allergies Allergies Allergy/AdvReac Type Severity Reaction Status Date / Time albuterol Allergy Unknown Unverified 07/28/21 17:08 baclofen Allergy Unknown Unverified 07/28/21 17:06 cyclobenzaprine Allergy Unknown Verified 10/16/20 10:50 [From Flexeril] nitrofurantoin Allergy Unknown Unverified 07/28/21 17:08 tizanidine [From Zanaflex] Allergy Unknown Verified 10/16/20 10:50 Home Medications Medication Instructions Recorded Confirmed Last Taken Type AtorvaSTATin 10 mg PO QHS 10/16/20 10/16/20 Unknown History Escitalopram [Lexapro] 30 mg PO DAILY 10/16/20 10/16/20 Unknown History Fluticasone/Salmeterol [Advair 1 puff IH BID 10/16/20 10/16/20 Unknown History Diskus 250-50 mcg] Loratadine [Allergy Relief] 10 mg PO QDAY 10/16/20 10/16/20 Unknown History Meloxicam [Mobic] 15 mg PO DAILY 10/16/20 10/16/20 Unknown History Metoclopramide [Reglan TAB] 10 mg PO ACHS 10/16/20 10/16/20 Unknown History Montelukast [Singulair] 10 mg PO QPM 10/16/20 10/16/20 Unknown History Ondansetron [Zofran ODT TAB] 8 mg PO PRN PRN 10/16/20 10/16/20 Unknown History Oxycodone HCl/Acetaminophen 10 - 325 mg PO QID 10/16/20 10/16/20 Unknown History [Oxycodone-Acetaminophen 10-325] Pantoprazole [Protonix TAB] 40 mg PO QDAY 10/16/20 10/16/20 Unknown History clonazePAM [KlonoPIN] 1 mg PO BID 10/16/20 10/16/20 Unknown History diphenhydrAMINE [Benadryl CAP] 50 mg PO DAILY 10/16/20 10/16/20 Unknown History Divalproex ER [Depakote ER] 500 mg PO TID #90 10/19/20 Unknown Rx Melatonin [Melatonin 5MG TAB] 5 mg PO QHS PRN #30 tablet 10/19/20 Unknown Rx Nicotine [Habitrol] 21 mg TD QDAY #30 patch 10/19/20 Unknown Rx [place]-3 Fatty Acids/Fish Oil [Fish 2,000 mg PO BID #120 capsule 10/19/20 Unknown Rx Oil] traZODone [Desyrel] 75 mg PO QHS #45 tablet 10/19/20 Unknown Rx Active Meds: Active Medications Atorvastatin Calcium (Atorvastatin 10 Mg Tab) 10 mg PO QHS [facility] Clonazepam (Clonazepam 0.5 Mg Tab) 1 mg PO BID [facility] Diphenhydramine HCl (Diphenhydramine 50 Mg Cap) 50 mg PO DAILY [facility] Divalproex Sodium (Divalproex Er 500 Mg Tab) 500 mg PO TID [facility] Escitalopram Oxalate (Escitalopram 10 Mg Tab) 30 mg PO DAILY [facility] Fish Oil ([place]-3 Fatty Acids/Fish Oil 1 Gram Cap) 2,000 mg PO BID [facility] Melatonin (Melatonin 5 Mg Tab) 5 mg PO QHS PRN PRN Reason: Sleep Metoclopramide HCl (Metoclopramide 10 Mg Tab) 10 mg PO ACHS [facility] Miscellaneous Medication (Fluticasone/Salmeterol [Advair Diskus 250-50 Mcg]) 1 puff IH BID [facility] Miscellaneous Medication (Loratadine [Allergy Relief]) 10 mg PO QDAY [facility] Miscellaneous Medication (Meloxicam [Mobic]) 15 mg PO DAILY [facility] Montelukast Sodium (Montelukast 10 Mg Tab) 10 mg PO QPM [facility] Nicotine (Nicotine 21 Mg/24 Hr Patch) 21 mg TD QDAY [facility] Ondansetron HCl (Ondansetron 8 Mg Odt Tab) 8 mg PO PRN PRN PRN Reason: Nausea Pantoprazole Sodium (Pantoprazole 40 Mg Tab) 40 mg PO QDAY [facility] Trazodone HCl (Trazodone 50 Mg Tab) 75 mg PO QHS [facility] Physician Certification - Certification Statement Physician Certification Statement: This is an acknowledgement statement that NAVEEN AVERY is a 56 year old F who requires inpatient psychiatric admission for treatment which could reasonably be expected to improve the patient's condition for Estimated period of time patient will need to remain in the hospital: [ ] Plan for post-hospital care: [ ]
[2021-07-29] MEDS ORDERED: NON-FORMULARY EACH (Loratadine [Allergy Relief] 10 MG Tablet) PO SCH (11:15)
[2021-07-29] MEDS ORDERED: NON-FORMULARY EACH (Meloxicam [Mobic] 15 MG Tablet) PO SCH (11:15)
[2021-07-29] MEDS ORDERED: NON-FORMULARY EACH (Fluticasone/Salmeterol [Advair Diskus 250-50 Mcg] 1 EACH Blst.W.Dev) IH SCH (11:15)
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
[2021-07-29] MEDS: METOCLOPRAMIDE 10 MG TAB PO SCH ×2 (13:39→21:16)
[2021-07-29] MEDS: ESCITALOPRAM 10 MG TAB PO SCH (13:52)
[2021-07-29] MEDS: DIVALPROEX ER 500 MG TAB PO SCH ×2 (13:52→21:15)
[2021-07-29] MEDS ORDERED: diphenhydrAMINE 50 MG CAP PO SCH (14:00)
[2021-07-29] MEDS: NICOTINE 21 MG/24 HR PATCH TD SCH (14:00)
[2021-07-29] MEDS: diphenhydrAMINE 25 MG CAP PO SCH (15:46)
[2021-07-29] MEDS: MONTELUKAST 10 MG TAB PO SCH (18:33)
[2021-07-29] MEDS: traZODone 50 MG TAB PO SCH (21:16)
[2021-07-29] MEDS: OMEGA-3 FATTY ACIDS/FISH OIL 1 GRAM CAP PO SCH (21:16)
[2021-07-29] MEDS: clonazePAM 0.5 MG TAB PO SCH (21:16)
[2021-07-30] MEDS: DIVALPROEX ER 500 MG TAB PO SCH ×3 (08:31→21:02)
[2021-07-30] MEDS: METOCLOPRAMIDE 10 MG TAB PO SCH ×4 (08:31→21:03)
[2021-07-30] MEDS: ESCITALOPRAM 10 MG TAB PO SCH (09:06)
[2021-07-30] MEDS: diphenhydrAMINE 25 MG CAP PO SCH (09:06)
[2021-07-30] MEDS: OMEGA-3 FATTY ACIDS/FISH OIL 1 GRAM CAP PO SCH ×2 (09:07→21:03)
[2021-07-30] MEDS: MELOXICAM 7.5 MG TAB PO SCH (09:07)
[2021-07-30] MEDS: CETIRIZINE 10 MG TAB PO SCH (09:08)
[2021-07-30] MEDS: NICOTINE 21 MG/24 HR PATCH TD SCH (09:08)
[2021-07-30] MEDS: PANTOPRAZOLE 40 MG TAB PO SCH (09:08)
[2021-07-30] MEDS: clonazePAM 0.5 MG TAB PO SCH ×2 (09:08→21:03)
--- NOTE | 2021-07-30 10:00 | Progress Note ---
Subjective - Reason for Consult Consult date: 07/30/21 Reason for consult: SI - Chief Complaint Chief complaint: The patient was seen today. She is walking the dimas. She is calm and cooperative. She denies SI/HI or hallucinations. The patient did says "being in so much pain just makes me want to ." She denies hallucinations of any kind. Staff says the patient refused mobic and ultam. The patient is c/o feeling like she has a cold. She says she has a bad cough and runny nose. She denies fever. REVIEW OF SYSTEMS Constitutional: Negative for weight loss ENT: Runny note Respiratory: Cough All other systems reviewed and are negative MENTAL STATUS EXAMINATION General Appearance and Behavior: Age appropriate, good hygiene, wearing appropriate clothes. calm, cooperative Cooperation: Cooperative Psychomotor Behavior: Psychomotor normal Mood: Depressed Affect and affective range: Congruent with stated mood Thought Process: Goal directed Thought Content: Reality oriented Speech: Normal Suicidal Ideation: Passive Homicidal Ideation: Denies Hallucinations: Denies Delusions: Denies Impulse Control: Limited Insight and Judgment: Limited insight and fair judgment Memory: Limited Attention: distracted Orientation: a/o x 3 Assessment (1) Major Depressive Disorder Current Visit: Yes Status: Acute Treatment Plan Patient admitted for inpatient psychiatric evaluation, medication adjustment and close monitoring The patient's behavior, mood, sleep and appetite will be closely monitored. Patient enrolled in individual and group therapeutic sessions and encouraged to attend. Patient provided with a safe and structured environment. Patient's physical health needs will be addressed by the Hospitalist. Hospitalist Consulted Labs including CBC, CMP, Lipid profile and Hemoglobin A1C levels ordered for baseline reference COVID test Social Assessment will be completed and the Rn Med Surg will work with patient and family to ensure a suitable and safe disposition Medication adjustment will be made as clinically indicated No changes made today Usual Wellness Hindu/Preservation: - Start Trazodone 50 mg po QHS & 50 mg po QHS PRN between 10 PM & 2 AM for insomnia - Start Melatonin 5 mg po QHS to promote circadian rhythm The patient agreed on the treatment plan, understood the risk, benefit, alternative treatment, potential consequence of no treatment, and gave informed consent. Estimated days: 7 Post hospital care: primary care provider, psychiatric provider Case staffed with Dr. Wade Mental Status Exam - Vital signs Last Vital Signs Temp 97.7 F 07/30/21 07:49 Pulse 85 07/30/21 07:49 Resp 18 07/30/21 07:49 BP 100/53 07/30/21 07:49 Pulse Ox 97 07/30/21 07:49
[2021-07-30] MEDS: traMADol 50 MG TAB PO PRN (16:42)
[2021-07-30] MEDS: MONTELUKAST 10 MG TAB PO SCH (18:01)
[2021-07-30] MEDS: traZODone 50 MG TAB PO SCH (21:02)
[2021-07-31 00:55] LABS: Basophils % (Auto) 0.5 % (0.0-1.8); Eosinophils # (Auto) 0.2 K/mm3 (0.0-0.4); Eosinophils % (Auto) 3.9 % (0.0-4.3); Hematocrit 34.5 % (30.3-42.9); Hemoglobin 10.9 gm/dl (10.1-14.3); Lymphocytes # (Auto) 1.8 K/mm3 (1.2-5.4); Lymphocytes % (Auto) 28.7 % (13.4-35.0); Mean Corpuscular HGB Conc 32 % (30-34); Mean Corpuscular Volume 91 fl (79-97); Monocytes # (Auto) 0.6 K/mm3 (0.0-0.8); Platelet Count 230 K/mm3 (140-440); Red Blood Count 3.81 M/mm3 (3.65-5.03); Red Cell Distribution Width 16.4 % (13.2-15.2)
[2021-07-31 02:20] LABS: Alanine Aminotransferase 17 units/L (7-56); Albumin 3.7 g/dL (3.9-5); BUN/Creatinine Ratio 26; Blood Urea Nitrogen 23 mg/dL (7-17); Calcium 9.7 mg/dL (8.4-10.2); Chol/HDL Ratio 3.97 %; HDL Cholesterol 39 mg/dL (40-59); Hemolysis Index 6; LDL Cholesterol,Direct 90 mg/dL (50-130)
[2021-07-31] MEDS: DIVALPROEX ER 500 MG TAB PO SCH (08:45)
--- NOTE | 2021-07-31 08:48 | Progress Note ---
Subjective Date of service: 07/31/21 Principal diagnosis: MDD Subjective Comment: The patient was seen today. She says she's "doing okay but still in pain." She denies SI/HI or hallucinations of any kind. The patient says, "I'm doing a little better. This pain had me feeling like I didn't care about life." The staff says the patient has been refusing her home depakote. She says she was no longer taking it at home. The patient did tell me yesterday, that it makes her too drowsy." She is asking for something for a cough. REVIEW OF SYSTEMS Constitutional: Negative for weight loss ENT: Runny note Respiratory: Cough All other systems reviewed and are negative MENTAL STATUS EXAMINATION General Appearance and Behavior: Age appropriate, good hygiene, wearing appropriate clothes. calm, cooperative Cooperation: Cooperative Psychomotor Behavior: Psychomotor normal Mood: Depressed Affect and affective range: Congruent with stated mood Thought Process: Goal directed Thought Content: Reality oriented Speech: Normal Suicidal Ideation: Passive Homicidal Ideation: Denies Hallucinations: Denies Delusions: Denies Impulse Control: Limited Insight and Judgment: Limited insight and fair judgment Memory: Limited Attention: distracted Orientation: a/o x 3 Assessment (1) Major Depressive Disorder Current Visit: Yes Status: Acute Treatment Plan Patient admitted for inpatient psychiatric evaluation, medication adjustment and close monitoring The patient's behavior, mood, sleep and appetite will be closely monitored. Patient enrolled in individual and group therapeutic sessions and encouraged to attend. Patient provided with a safe and structured environment. Patient's physical health needs will be addressed by the Hospitalist. Hospitalist Consulted Labs including CBC, CMP, Lipid profile and Hemoglobin A1C levels ordered for baseline reference COVID test Social Assessment will be completed and the Yarder Engineer will work with patient and family to ensure a suitable and safe disposition Medication adjustment will be made as clinically indicated Start Guafenesin 200mg po q6h prn cough Start Tylenol 500mg po q4h prn pain d/c home depakote Usual Wellness Jainism/Preservation: - Start Trazodone 50 mg po QHS & 50 mg po QHS PRN between 10 PM & 2 AM for insomnia - Start Melatonin 5 mg po QHS to promote circadian rhythm The patient agreed on the treatment plan, understood the risk, benefit, alternative treatment, potential consequence of no treatment, and gave informed consent. Estimated days: 7 Post hospital care: primary care provider, psychiatric provider Case staffed with Dr. Wade Medications and Allergies Allergies Allergy/AdvReac Type Severity Reaction Status Date / Time albuterol Allergy Unknown Verified 07/29/21 11:32 baclofen Allergy Unknown Verified 07/29/21 11:32 cyclobenzaprine Allergy Unknown Verified 07/29/21 11:32 [From Flexeril] nitrofurantoin Allergy Unknown Verified 07/29/21 11:32 tizanidine [From Zanaflex] Allergy Unknown Verified 07/29/21 11:32 Home Medications Medication Instructions Recorded Confirmed Last Taken Type AtorvaSTATin 10 mg PO QHS 10/16/20 07/29/21 Unknown History Escitalopram [Lexapro] 30 mg PO DAILY 10/16/20 07/29/21 Unknown History Fluticasone/Salmeterol [Advair 1 puff IH BID 10/16/20 07/29/21 Unknown History Diskus 250-50 mcg] Loratadine [Allergy Relief] 10 mg PO QDAY 10/16/20 07/29/21 Unknown History Meloxicam [Mobic] 15 mg PO DAILY 10/16/20 07/29/21 Unknown History Metoclopramide [Reglan TAB] 10 mg PO ACHS 10/16/20 07/29/21 Unknown History Montelukast [Singulair] 10 mg PO QPM 10/16/20 07/29/21 Unknown History Ondansetron [Zofran ODT TAB] 8 mg PO PRN PRN 10/16/20 07/29/21 Unknown History Oxycodone HCl/Acetaminophen 10 - 325 mg PO QID 10/16/20 07/29/21 Unknown History [Oxycodone-Acetaminophen 10-325] Pantoprazole [Protonix TAB] 40 mg PO QDAY 10/16/20 07/29/21 Unknown History clonazePAM [KlonoPIN] 1 mg PO BID 10/16/20 07/29/21 Unknown History diphenhydrAMINE [Benadryl CAP] 50 mg PO DAILY 10/16/20 07/29/21 Unknown History Divalproex ER [Depakote ER] 500 mg PO TID #90 10/19/20 07/29/21 Unknown Rx Melatonin [Melatonin 5MG TAB] 5 mg PO QHS PRN #30 tablet 10/19/20 07/29/21 Unknown Rx Nicotine [Habitrol] 21 mg TD QDAY #30 patch 10/19/20 07/29/21 Unknown Rx [place]-3 Fatty Acids/Fish Oil [Fish 2,000 mg PO BID #120 capsule 10/19/20 07/29/21 Unknown Rx Oil] traZODone [Desyrel] 75 mg PO QHS #45 tablet 10/19/20 07/29/21 Unknown Rx Active Meds: Active Medications Atorvastatin Calcium (Atorvastatin 10 Mg Tab) 10 mg PO QHS [facility] Last Admin: 07/30/21 21:02 Dose: 10 mg Cetirizine HCl (Cetirizine 10 Mg Tab) 10 mg PO DAILY [facility] Last Admin: 07/30/21 09:08 Dose: 10 mg Clonazepam (Clonazepam 0.5 Mg Tab) 1 mg PO BID [facility] Last Admin: 07/30/21 21:03 Dose: 1 mg Diphenhydramine HCl (Diphenhydramine 25 Mg Cap) 50 mg PO DAILY [facility] Last Admin: 07/30/21 09:06 Dose: 50 mg Divalproex Sodium (Divalproex Er 500 Mg Tab) 500 mg PO TID [facility] Last Admin: 07/30/21 21:02 Dose: Not Given Escitalopram Oxalate (Escitalopram 10 Mg Tab) 30 mg PO DAILY [facility] Last Admin: 07/30/21 09:06 Dose: 30 mg Fish Oil ([place]-3 Fatty Acids/Fish Oil 1 Gram Cap) 2,000 mg PO BID [facility] Last Admin: 07/30/21 21:03 Dose: 2,000 mg Melatonin (Melatonin 5 Mg Tab) 5 mg PO QHS PRN PRN Reason: Sleep Meloxicam (Meloxicam 7.5 Mg Tab) 15 mg PO QDAY [facility] Last Admin: 07/30/21 09:07 Dose: Not Given Metoclopramide HCl (Metoclopramide 10 Mg Tab) 10 mg PO ACHS [facility] Last Admin: 07/30/21 21:03 Dose: 10 mg Miscellaneous Medication (Fluticasone/Salmeterol [Advair Diskus 250-50 Mcg]) 1 puff IH BID [facility] Montelukast Sodium (Montelukast 10 Mg Tab) 10 mg PO QPM [facility] Last Admin: 07/30/21 18:01 Dose: 10 mg Nicotine (Nicotine 21 Mg/24 Hr Patch) 21 mg TD QDAY [facility] Last Admin: 07/30/21 09:08 Dose: 21 mg Ondansetron HCl (Ondansetron 8 Mg Odt Tab) 8 mg PO QDAY PRN PRN Reason: Nausea Pantoprazole Sodium (Pantoprazole 40 Mg Tab) 40 mg PO QDAY [facility] Last Admin: 07/30/21 09:08 Dose: 40 mg Tramadol HCl (Tramadol 50 Mg Tab) 50 mg PO Q4H PRN PRN Reason: Pain, Moderate (4-6) Last Admin: 07/30/21 16:42 Dose: 50 mg Trazodone HCl (Trazodone 50 Mg Tab) 75 mg PO QHS [facility] Last Admin: 07/30/21 21:02 Dose: 75 mg Results - Results Labs/Vitals: Laboratory Last Values WBC 6.3 K/mm3 (4.5-11.0) 07/31/21 00:17 RBC 3.81 M/mm3 (3.65-5.03) 07/31/21 00:17 Hgb 10.9 gm/dl (10.1-14.3) 07/31/21 00:17 Hct 34.5 % (30.3-42.9) 07/31/21 00:17 MCV 91 fl (79-97) 07/31/21 00:17 MCH 29 pg (28-32) 07/31/21 00:17 MCHC 32 % (30-34) 07/31/21 00:17 RDW 16.4 % (13.2-15.2) H 07/31/21 00:17 Plt Count 230 K/mm3 (140-440) 07/31/21 00:17 Lymph % (Auto) 28.7 % (13.4-35.0) 07/31/21 00:17 [place] % (Auto) 10.0 % (0.0-7.3) H 07/31/21 00:17 Eos % (Auto) 3.9 % (0.0-4.3) 07/31/21 00:17 Baso % (Auto) 0.5 % (0.0-1.8) 07/31/21 00:17 Lymph # (Auto) 1.8 K/mm3 (1.2-5.4) 07/31/21 00:17 [place] # (Auto) 0.6 K/mm3 (0.0-0.8) 07/31/21 00:17 Eos # (Auto) 0.2 K/mm3 (0.0-0.4) 07/31/21 00:17 Baso # (Auto) 0.0 K/mm3 (0.0-0.1) 07/31/21 00:17 Seg Neutrophils % 56.9 % (40.0-70.0) 07/31/21 00:17 Seg Neutrophils # 3.6 K/mm3 (1.8-7.7) 07/31/21 00:17 Sodium 140 mmol/L (137-145) 07/31/21 00:17 Potassium 3.9 mmol/L (3.6-5.0) 07/31/21 00:17 Chloride 104.7 mmol/L (98-107) 07/31/21 00:17 Carbon Dioxide 23 mmol/L (22-30) 07/31/21 00:17 Anion Gap 16 mmol/L 07/31/21 00:17 BUN 23 mg/dL (7-17) H 07/31/21 00:17 Creatinine 0.9 mg/dL (0.6-1.2) 07/31/21 00:17 Estimated GFR > 60 ml/min 07/31/21 00:17 BUN/Creatinine Ratio 26 % 07/31/21 00:17 Glucose 88 mg/dL (65-100) 07/31/21 00:17 Hemoglobin A1c 5.3 % (4-6) 07/31/21 00:17 Calcium 9.7 mg/dL (8.4-10.2) 07/31/21 00:17 Total Bilirubin < 0.20 mg/dL (0.1-1.2) 07/31/21 00:17 AST 15 units/L (5-40) 07/31/21 00:17 ALT 17 units/L (7-56) 07/31/21 00:17 Alkaline Phosphatase 124 units/L (35-129) 07/31/21 00:17 Total Protein 6.7 g/dL (6.3-8.2) 07/31/21 00:17 Albumin 3.7 g/dL (3.9-5) L 07/31/21 00:17 Albumin/Globulin Ratio 1.2 % 07/31/21 00:17 Triglycerides 151 mg/dL (2-149) H 07/31/21 00:17 Cholesterol 155 mg/dL (50-199) 07/31/21 00:17 LDL Cholesterol Direct 90 mg/dL (50-130) 07/31/21 00:17 HDL Cholesterol 39 mg/dL (40-59) L 07/31/21 00:17 Cholesterol/HDL Ratio 3.97 % 07/31/21 00:17 TSH 5.390 mlU/mL (0.270-4.200) H 07/31/21 00:17 Last Vital Signs Temp 97.5 F L 07/30/21 22:00 Pulse 73 07/30/21 22:00 Resp 18 07/30/21 22:00 BP 118/80 07/30/21 22:00 Pulse Ox 97 07/30/21 22:00
[2021-07-31] MEDS: OMEGA-3 FATTY ACIDS/FISH OIL 1 GRAM CAP PO SCH ×2 (10:06→21:12)
[2021-07-31] MEDS: ESCITALOPRAM 10 MG TAB PO SCH (10:06)
[2021-07-31] MEDS: clonazePAM 0.5 MG TAB PO SCH ×2 (10:06→21:13)
[2021-07-31] MEDS: METOCLOPRAMIDE 10 MG TAB PO SCH ×4 (10:06→21:12)
[2021-07-31] MEDS: PANTOPRAZOLE 40 MG TAB PO SCH (10:06)
[2021-07-31] MEDS: diphenhydrAMINE 25 MG CAP PO SCH (10:07)
[2021-07-31] MEDS: CETIRIZINE 10 MG TAB PO SCH (10:07)
[2021-07-31] MEDS: MELOXICAM 7.5 MG TAB PO SCH (10:07)
[2021-07-31] MEDS: NICOTINE 21 MG/24 HR PATCH TD SCH (10:08)
[2021-07-31] MEDS ORDERED: ACETAMINOPHEN 500 MG TAB PO PRN (10:30)
[2021-07-31] MEDS: guaiFENesin 200 MG TAB PO PRN (10:46)
[2021-07-31] MEDS: MONTELUKAST 10 MG TAB PO SCH (18:36)
[2021-07-31] MEDS: traZODone 50 MG TAB PO SCH (21:10)
--- NOTE | 2021-08-01 09:14 | Progress Note ---
Subjective Date of service: 08/01/21 Principal diagnosis: MDD Subjective Comment: 08/01/21: The patient was seen this morning. She reports that depression is improving. The patient reports sleep and appetite as good. She denies any current suicidal/homicidal ideation and denies hallucinations. REVIEW OF SYSTEMS Constitutional: Negative for weight loss ENT: Runny note Respiratory: Cough All other systems reviewed and are negative MENTAL STATUS EXAMINATION General Appearance and Behavior: Age appropriate, good hygiene, wearing appropriate clothes. calm, cooperative Cooperation: Cooperative Psychomotor Behavior: Psychomotor normal Mood: "ok" Affect and affective range: Congruent with stated mood Thought Process: Goal directed Thought Content: Reality oriented Speech: Normal Suicidal Ideation: Passive Homicidal Ideation: Denies Hallucinations: Denies Delusions: Denies Impulse Control: Limited Insight and Judgment: Limited insight and fair judgment Memory: Limited Attention: distracted Orientation: a/o x 3 Assessment (1) Major Depressive Disorder Current Visit: Yes Status: Acute Treatment Plan Patient admitted for inpatient psychiatric evaluation, medication adjustment and close monitoring The patient's behavior, mood, sleep and appetite will be closely monitored. Patient enrolled in individual and group therapeutic sessions and encouraged to attend. Patient provided with a safe and structured environment. Patient's physical health needs will be addressed by the Hospitalist. Hospitalist Consulted Labs including CBC, CMP, Lipid profile and Hemoglobin A1C levels ordered for baseline reference COVID test Social Assessment will be completed and the Installer [employer] will work with patient and family to ensure a suitable and safe disposition Medication adjustment will be made as clinically indicated Start Guafenesin 200mg po q6h prn cough Start Tylenol 500mg po q4h prn pain d/c home depakote Usual Wellness Yazidi/Preservation: - Start Trazodone 50 mg po QHS & 50 mg po QHS PRN between 10 PM & 2 AM for insomnia - Start Melatonin 5 mg po QHS to promote circadian rhythm The patient agreed on the treatment plan, understood the risk, benefit, alternative treatment, potential consequence of no treatment, and gave informed consent. Estimated days: 6 Post hospital care: primary care provider, psychiatric provider Case staffed with Dr. Wade Medications and Allergies Allergies Allergy/AdvReac Type Severity Reaction Status Date / Time albuterol Allergy Unknown Verified 07/29/21 11:32 baclofen Allergy Unknown Verified 07/29/21 11:32 cyclobenzaprine Allergy Unknown Verified 07/29/21 11:32 [From Flexeril] nitrofurantoin Allergy Unknown Verified 07/29/21 11:32 tizanidine [From Zanaflex] Allergy Unknown Verified 07/29/21 11:32 Home Medications Medication Instructions Recorded Confirmed Last Taken Type AtorvaSTATin 10 mg PO QHS 10/16/20 07/29/21 Unknown History Escitalopram [Lexapro] 30 mg PO DAILY 10/16/20 07/29/21 Unknown History Fluticasone/Salmeterol [Advair 1 puff IH BID 10/16/20 07/29/21 Unknown History Diskus 250-50 mcg] Loratadine [Allergy Relief] 10 mg PO QDAY 10/16/20 07/29/21 Unknown History Meloxicam [Mobic] 15 mg PO DAILY 10/16/20 07/29/21 Unknown History Metoclopramide [Reglan TAB] 10 mg PO ACHS 10/16/20 07/29/21 Unknown History Montelukast [Singulair] 10 mg PO QPM 10/16/20 07/29/21 Unknown History Ondansetron [Zofran ODT TAB] 8 mg PO PRN PRN 10/16/20 07/29/21 Unknown History Oxycodone HCl/Acetaminophen 10 - 325 mg PO QID 10/16/20 07/29/21 Unknown History [Oxycodone-Acetaminophen 10-325] Pantoprazole [Protonix TAB] 40 mg PO QDAY 10/16/20 07/29/21 Unknown History clonazePAM [KlonoPIN] 1 mg PO BID 10/16/20 07/29/21 Unknown History diphenhydrAMINE [Benadryl CAP] 50 mg PO DAILY 10/16/20 07/29/21 Unknown History Divalproex ER [Depakote ER] 500 mg PO TID #90 10/19/20 07/29/21 Unknown Rx Melatonin [Melatonin 5MG TAB] 5 mg PO QHS PRN #30 tablet 10/19/20 07/29/21 Unknown Rx Nicotine [Habitrol] 21 mg TD QDAY #30 patch 10/19/20 07/29/21 Unknown Rx [place]-3 Fatty Acids/Fish Oil [Fish 2,000 mg PO BID #120 capsule 10/19/20 07/29/21 Unknown Rx Oil] traZODone [Desyrel] 75 mg PO QHS #45 tablet 10/19/20 07/29/21 Unknown Rx Active Meds: Active Medications Acetaminophen (Acetaminophen 500 Mg Tab) 500 mg PO Q4H PRN PRN Reason: Pain, Mild (1-3) Atorvastatin Calcium (Atorvastatin 10 Mg Tab) 10 mg PO QHS [facility] Last Admin: 07/31/21 21:12 Dose: 10 mg Cetirizine HCl (Cetirizine 10 Mg Tab) 10 mg PO DAILY [facility] Last Admin: 07/31/21 10:07 Dose: 10 mg Clonazepam (Clonazepam 0.5 Mg Tab) 1 mg PO BID [facility] Last Admin: 07/31/21 21:13 Dose: 1 mg Diphenhydramine HCl (Diphenhydramine 25 Mg Cap) 50 mg PO DAILY [facility] Last Admin: 07/31/21 10:07 Dose: 50 mg Escitalopram Oxalate (Escitalopram 10 Mg Tab) 30 mg PO DAILY [facility] Last Admin: 07/31/21 10:06 Dose: 30 mg Fish Oil ([place]-3 Fatty Acids/Fish Oil 1 Gram Cap) 2,000 mg PO BID [facility] Last Admin: 07/31/21 21:12 Dose: 2,000 mg Guaifenesin (Guaifenesin 200 Mg Tab) 200 mg PO Q6H PRN PRN Reason: Cough Last Admin: 07/31/21 10:46 Dose: 200 mg Melatonin (Melatonin 5 Mg Tab) 5 mg PO QHS PRN PRN Reason: Sleep Meloxicam (Meloxicam 7.5 Mg Tab) 15 mg PO QDAY [facility] Last Admin: 07/31/21 10:07 Dose: Not Given Metoclopramide HCl (Metoclopramide 10 Mg Tab) 10 mg PO ACHS [facility] Last Admin: 07/31/21 21:12 Dose: 10 mg Miscellaneous Medication (Fluticasone/Salmeterol [Advair Diskus 250-50 Mcg]) 1 puff IH BID [facility] Montelukast Sodium (Montelukast 10 Mg Tab) 10 mg PO QPM [facility] Last Admin: 07/31/21 18:36 Dose: 10 mg Nicotine (Nicotine 21 Mg/24 Hr Patch) 21 mg TD QDAY [facility] Last Admin: 07/31/21 10:08 Dose: 21 mg Ondansetron HCl (Ondansetron 8 Mg Odt Tab) 8 mg PO QDAY PRN PRN Reason: Nausea Pantoprazole Sodium (Pantoprazole 40 Mg Tab) 40 mg PO QDAY [facility] Last Admin: 07/31/21 10:06 Dose: 40 mg Tramadol HCl (Tramadol 50 Mg Tab) 50 mg PO Q4H PRN PRN Reason: Pain, Moderate (4-6) Last Admin: 07/30/21 16:42 Dose: 50 mg Trazodone HCl (Trazodone 50 Mg Tab) 75 mg PO QHS [facility] Last Admin: 07/31/21 21:10 Dose: 75 mg Results - Results Labs/Vitals: Laboratory Last Values WBC 6.3 K/mm3 (4.5-11.0) 07/31/21 00:17 RBC 3.81 M/mm3 (3.65-5.03) 07/31/21 00:17 Hgb 10.9 gm/dl (10.1-14.3) 07/31/21 00:17 Hct 34.5 % (30.3-42.9) 07/31/21 00:17 MCV 91 fl (79-97) 07/31/21 00:17 MCH 29 pg (28-32) 07/31/21 00:17 MCHC 32 % (30-34) 07/31/21 00:17 RDW 16.4 % (13.2-15.2) H 07/31/21 00:17 Plt Count 230 K/mm3 (140-440) 07/31/21 00:17 Lymph % (Auto) 28.7 % (13.4-35.0) 07/31/21 00:17 [place] % (Auto) 10.0 % (0.0-7.3) H 07/31/21 00:17 Eos % (Auto) 3.9 % (0.0-4.3) 07/31/21 00:17 Baso % (Auto) 0.5 % (0.0-1.8) 07/31/21 00:17 Lymph # (Auto) 1.8 K/mm3 (1.2-5.4) 07/31/21 00:17 [place] # (Auto) 0.6 K/mm3 (0.0-0.8) 07/31/21 00:17 Eos # (Auto) 0.2 K/mm3 (0.0-0.4) 07/31/21 00:17 Baso # (Auto) 0.0 K/mm3 (0.0-0.1) 07/31/21 00:17 Seg Neutrophils % 56.9 % (40.0-70.0) 07/31/21 00:17 Seg Neutrophils # 3.6 K/mm3 (1.8-7.7) 07/31/21 00:17 Sodium 140 mmol/L (137-145) 07/31/21 00:17 Potassium 3.9 mmol/L (3.6-5.0) 07/31/21 00:17 Chloride 104.7 mmol/L (98-107) 07/31/21 00:17 Carbon Dioxide 23 mmol/L (22-30) 07/31/21 00:17 Anion Gap 16 mmol/L 07/31/21 00:17 BUN 23 mg/dL (7-17) H 07/31/21 00:17 Creatinine 0.9 mg/dL (0.6-1.2) 07/31/21 00:17 Estimated GFR > 60 ml/min 07/31/21 00:17 BUN/Creatinine Ratio 26 % 07/31/21 00:17 Glucose 88 mg/dL (65-100) 07/31/21 00:17 Hemoglobin A1c 5.3 % (4-6) 07/31/21 00:17 Calcium 9.7 mg/dL (8.4-10.2) 07/31/21 00:17 Total Bilirubin < 0.20 mg/dL (0.1-1.2) 07/31/21 00:17 AST 15 units/L (5-40) 07/31/21 00:17 ALT 17 units/L (7-56) 07/31/21 00:17 Alkaline Phosphatase 124 units/L (35-129) 07/31/21 00:17 Total Protein 6.7 g/dL (6.3-8.2) 07/31/21 00:17 Albumin 3.7 g/dL (3.9-5) L 07/31/21 00:17 Albumin/Globulin Ratio 1.2 % 07/31/21 00:17 Triglycerides 151 mg/dL (2-149) H 07/31/21 00:17 Cholesterol 155 mg/dL (50-199) 07/31/21 00:17 LDL Cholesterol Direct 90 mg/dL (50-130) 07/31/21 00:17 HDL Cholesterol 39 mg/dL (40-59) L 07/31/21 00:17 Cholesterol/HDL Ratio 3.97 % 07/31/21 00:17 TSH 5.390 mlU/mL (0.270-4.200) H 07/31/21 00:17 SARS-CoV-2 (PCR) Negative (Negative) 07/31/21 08:45 Last Vital Signs Temp 99.0 F 07/31/21 19:51 Pulse 79 07/31/21 19:51 Resp 16 07/31/21 19:51 BP 106/68 07/31/21 19:51 Pulse Ox 96 07/31/21 19:51
[2021-08-01] MEDS: METOCLOPRAMIDE 10 MG TAB PO SCH ×4 (11:23→21:23)
[2021-08-01] MEDS: diphenhydrAMINE 25 MG CAP PO SCH (11:23)
[2021-08-01] MEDS: CETIRIZINE 10 MG TAB PO SCH (11:23)
[2021-08-01] MEDS: OMEGA-3 FATTY ACIDS/FISH OIL 1 GRAM CAP PO SCH ×2 (11:23→21:23)
[2021-08-01] MEDS: NICOTINE 21 MG/24 HR PATCH TD SCH (11:24)
[2021-08-01] MEDS: clonazePAM 0.5 MG TAB PO SCH ×2 (11:24→21:22)
[2021-08-01] MEDS: guaiFENesin 200 MG TAB PO PRN ×2 (11:25→22:37)
[2021-08-01] MEDS: PANTOPRAZOLE 40 MG TAB PO SCH (11:25)
[2021-08-01] MEDS: ESCITALOPRAM 10 MG TAB PO SCH (11:25)
[2021-08-01] MEDS: MELOXICAM 7.5 MG TAB PO SCH (11:26)
[2021-08-01] MEDS: MONTELUKAST 10 MG TAB PO SCH (17:24)
[2021-08-01] MEDS: traZODone 50 MG TAB PO SCH (21:23)
[2021-08-01] MEDS: traMADol 50 MG TAB PO PRN (21:57)
[2021-08-02 08:27] VITALS: BP 119/64
--- NOTE | 2021-08-02 08:44 | Discharge Summary ---
Providers - Providers Date of Admission: 07/29/21 11:17 Date of discharge: 08/02/21 Attending physician: YURIY JUAN MD 07/29/21 10:58 Consult to Physician [CONS] Routine Comment: Consulting Provider: MARY ROSALES Physician Instructions: Reason For Exam: manage medical conditions Primary care physician: RN TEAM LEADER Hospitalization Reason for admission: suicidal ideation Admitting Diagnosis: F33.9 - MAJOR DEPRESSIVE DISORDER, RECURRENT, UNSPECIFIED Condition: Stable Hospital course: The patient was provided inpatient psychiatric treatment with safe and supportive environment, group/individual therapy, psychiatric medication, medication adjustment, adverse effect monitor, medical evaluation, medical treatment, social service assessment, social support meeting, placement assessment and psycho-education. The patients mood, cognition, behavior, motivation, compliance to treatment and appreciation on family/social support are improved and stabilized. At the time of discharge, the patient had no suicidal ideas, no homicidal ideas, no aggressive thoughts, no endangering behavior and no debilitating adverse effects. The patient agreed on the treatment plan, understood the risk, benefit, alternative treatment, potential consequence of no treatment, and gave informed consent. Progress Note: 07/30/21: The patient was seen today. She is walking the dimas. She is calm and cooperative. She denies SI/HI or hallucinations. The patient did says "being in so much pain just makes me want to ." She denies hallucinations of any kind. Staff says the patient refused mobic and ultam. The patient is c/o feeling like she has a cold. She says she has a bad cough and runny nose. She denies fever. 07/31/21: The patient was seen today. She says she's "doing okay but still in pain." She denies SI/HI or hallucinations of any kind. The patient says, "I'm doing a little better. This pain had me feeling like I didn't care about life." The staff says the patient has been refusing her home depakote. She says she was no longer taking it at home. The patient did tell me yesterday, that it makes her too drowsy." She is asking for something for a cough. 08/01/21: The patient was seen this morning. She reports that depression is improving. The patient reports sleep and appetite as good. She denies any current suicidal/homicidal ideation and denies hallucinations. Disposition: 30 STILL A PATIENT Allergies/Adverse Reactions: Allergies albuterol Allergy (Verified 07/29/21 11:32) Unknown baclofen Allergy (Verified 07/29/21 11:32) Unknown cyclobenzaprine [From Flexeril] Allergy (Verified 07/29/21 11:32) Unknown nitrofurantoin Allergy (Verified 07/29/21 11:32) Unknown tizanidine [From Zanaflex] Allergy (Verified 07/29/21 11:32) Unknown Vital Signs: Last Vital Signs Temp 97.5 F L 08/02/21 07:48 Pulse 84 08/02/21 07:48 Resp 18 08/02/21 07:48 BP 119/64 08/02/21 07:48 Pulse Ox 99 08/02/21 07:48 Last Lab: Laboratory Last Values WBC 6.3 K/mm3 (4.5-11.0) 07/31/21 00:17 RBC 3.81 M/mm3 (3.65-5.03) 07/31/21 00:17 Hgb 10.9 gm/dl (10.1-14.3) 07/31/21 00:17 Hct 34.5 % (30.3-42.9) 07/31/21 00:17 MCV 91 fl (79-97) 07/31/21 00:17 MCH 29 pg (28-32) 07/31/21 00:17 MCHC 32 % (30-34) 07/31/21 00:17 RDW 16.4 % (13.2-15.2) H 07/31/21 00:17 Plt Count 230 K/mm3 (140-440) 07/31/21 00:17 Lymph % (Auto) 28.7 % (13.4-35.0) 07/31/21 00:17 [place] % (Auto) 10.0 % (0.0-7.3) H 07/31/21 00:17 Eos % (Auto) 3.9 % (0.0-4.3) 07/31/21 00:17 Baso % (Auto) 0.5 % (0.0-1.8) 07/31/21 00:17 Lymph # (Auto) 1.8 K/mm3 (1.2-5.4) 07/31/21 00:17 [place] # (Auto) 0.6 K/mm3 (0.0-0.8) 07/31/21 00:17 Eos # (Auto) 0.2 K/mm3 (0.0-0.4) 07/31/21 00:17 Baso # (Auto) 0.0 K/mm3 (0.0-0.1) 07/31/21 00:17 Seg Neutrophils % 56.9 % (40.0-70.0) 07/31/21 00:17 Seg Neutrophils # 3.6 K/mm3 (1.8-7.7) 07/31/21 00:17 Sodium 140 mmol/L (137-145) 07/31/21 00:17 Potassium 3.9 mmol/L (3.6-5.0) 07/31/21 00:17 Chloride 104.7 mmol/L (98-107) 07/31/21 00:17 Carbon Dioxide 23 mmol/L (22-30) 07/31/21 00:17 Anion Gap 16 mmol/L 07/31/21 00:17 BUN 23 mg/dL (7-17) H 07/31/21 00:17 Creatinine 0.9 mg/dL (0.6-1.2) 07/31/21 00:17 Estimated GFR > 60 ml/min 07/31/21 00:17 BUN/Creatinine Ratio 26 % 07/31/21 00:17 Glucose 88 mg/dL (65-100) 07/31/21 00:17 Hemoglobin A1c 5.3 % (4-6) 07/31/21 00:17 Calcium 9.7 mg/dL (8.4-10.2) 07/31/21 00:17 Total Bilirubin < 0.20 mg/dL (0.1-1.2) 07/31/21 00:17 AST 15 units/L (5-40) 07/31/21 00:17 ALT 17 units/L (7-56) 07/31/21 00:17 Alkaline Phosphatase 124 units/L (35-129) 07/31/21 00:17 Total Protein 6.7 g/dL (6.3-8.2) 07/31/21 00:17 Albumin 3.7 g/dL (3.9-5) L 07/31/21 00:17 Albumin/Globulin Ratio 1.2 % 07/31/21 00:17 Triglycerides 151 mg/dL (2-149) H 07/31/21 00:17 Cholesterol 155 mg/dL (50-199) 07/31/21 00:17 LDL Cholesterol Direct 90 mg/dL (50-130) 07/31/21 00:17 HDL Cholesterol 39 mg/dL (40-59) L 07/31/21 00:17 Cholesterol/HDL Ratio 3.97 % 07/31/21 00:17 TSH 5.390 mlU/mL (0.270-4.200) H 07/31/21 00:17 SARS-CoV-2 (PCR) Negative (Negative) 07/31/21 08:45 Core Measure Documentation - Palliative Care Palliative Care/ Comfort Measures: Not Applicable - Core Measures Any of the following diagnoses?: none - VTE Discharge Requirements Deep Vein Thrombosis/Pulmonary Embolism Present on Admission: No Exam - Constitutional Vitals: Temp Pulse Resp BP Pulse Ox 97.5 F L 84 18 119/64 99 08/02/21 07:48 08/02/21 07:48 08/02/21 07:48 08/02/21 07:48 08/02/21 07:48 Plan Activity: advance as tolerated Weight Bearing Status: Weight Bear as Tolerated Diet: regular Care Plan Goals: Maintain good and stable mental health. Plan of Treatment: The patient should be compliant with medications, not to use drugs and not to drink alcohol.The patient understands that if suicidal ideas, homicidal ideas, or any endangering thoughts/behavior arise, they should immediately seek for emergent assistance including but not limited to crisis hot line and emergency room. Follow up with outpatient Psychiatrist and PCP within 7 - 14 days of discharge. Follow up with: PRIMARY CARE,MD [Primary Care Provider] - 7 Days Prescriptions: traZODone [Desyrel] 75 mg PO QHS 30 Days #30 tablet diphenhydrAMINE [Benadryl CAP] 50 mg PO DAILY 30 Days #30 capsule clonazePAM [KlonoPIN] 1 mg PO BID 30 Days #30 tablet Escitalopram [Lexapro] 30 mg PO DAILY 30 Days #30 tablet traMADoL [Ultram 50 MG tab] 50 mg PO Q4H PRN 30 Days #30 tablet PRN Reason: Pain, Moderate (4-6)
[2021-08-02] MEDS: CETIRIZINE 10 MG TAB PO SCH (09:35)
[2021-08-02] MEDS: OMEGA-3 FATTY ACIDS/FISH OIL 1 GRAM CAP PO SCH (09:35)
[2021-08-02] MEDS: clonazePAM 0.5 MG TAB PO SCH (09:35)
[2021-08-02] MEDS: ESCITALOPRAM 10 MG TAB PO SCH (09:35)
[2021-08-02] MEDS: diphenhydrAMINE 25 MG CAP PO SCH (09:35)
[2021-08-02] MEDS: PANTOPRAZOLE 40 MG TAB PO SCH (09:35)
[2021-08-02] MEDS: METOCLOPRAMIDE 10 MG TAB PO SCH ×2 (09:36→11:39)
[2021-08-02] MEDS: NICOTINE 21 MG/24 HR PATCH TD SCH (09:37)
[2021-08-02] MEDS: MELOXICAM 7.5 MG TAB PO SCH (09:42)
[2021-08-02] MEDS: guaiFENesin 200 MG TAB PO PRN (09:43)
[2021-08-02] MEDS: traMADol 50 MG TAB PO PRN (10:39)
== END 2021-08-02 12:25 | disposition home or self-care (01) | DRG 885 ==
LOC: 3A 16:07 → UNDOADMIN 16:07 → 5A 07-29 11:17
PROVIDERS: ADMIT Psychiatry & Neurology Psychiatry; ATTEND Psychiatry & Neurology Psychiatry
DX: F33.9 Major depressive disorder, recurrent, unspecified (principal); J44.9 Chronic obstructive pulmonary disease, unspecified; K21.9 Gastro-esophageal reflux disease without esophagitis; F43.10 Post-traumatic stress disorder, unspecified; Z88.8 Allergy status to other drugs, medicaments and biological substances; Z20.822 Contact with and (suspected) exposure to COVID-19
CPT/HCPCS: 36415; 80053; 80061; 83036; 84443; 85025; G0378; U0003